=== PATIENT | female | born 1985 | race Caucasian/White ===

== ENCOUNTER → 2018-03-13 15:30 | Outpatient (CLI) | payer OTHER, SELFPAY ==
--- NOTE | 2018-03-13 15:30 | DT_ITS ---
This patient was seen during an EMR downtime March 10, 2018 - March 17, 2018. This patient may have a combination of paper and electronic documentation or all paper documentation. All documentation is viewable within the e-chart portion of [facility] for each patient visit.
[2018-03-16 09:13] LABS: Chlamydia Trachomatis by PCR Negative (Negative); Neisserai gonorrhoeae by PCR Negative (Negative); Probe Check PASS; Sample Adequacy Control PASS; Specimen Processing Control PASS
[2018-03-25 14:04] LABS: HPV APTIMA, High Risk Negative (Negative)
== END ==
PROVIDERS: Visit Provider Obstetrics & Gynecology
DX: Z12.4 Encounter for screening for malignant neoplasm of cervix (principal); Z11.3 Encounter for screening for infections with a predominantly sexual mode of transmission
CPT/HCPCS: 87491; 87591; 88175; G0145

== ENCOUNTER → 2018-03-28 15:05 | Outpatient (CLI) | payer OTHER, SELFPAY ==
[2018-03-28 17:09] LABS: Absolute Lymphocyte Count 2.13 X10^3/ul (0.83-4.51); Absolute Neutrophil Count 7.4 X10^3/uL (2.0-7.7); Basophil# 0.05 X10^3/uL; Basophil% 0.5 % (0-1); Color, Urine Yellow (Yellow); Eosinophil# 0.24 X10^3/uL; Eosinophils% 2.2 % (0-5); Glucose, Dipstick Normal (Normal); Hematocrit 37.3 % (37-47); Hemoglobin 13.3 g/dl (12.0-15.0); Ketone-Dipstick Negative (Negative); Leukocyte Esterase-Dipstick 25 /ul (Negative); Lymphocyte # 2.13 X10^3/ul (4.0); Lymphocyte % 19.4 % (19-41); Mean Corp Hgb Conc 35.7 g/gl (32-36); Mean Corpuscular Hgb 32.9 pg (27.0-32.0); Mean Corpuscular Volume 92.3 fL (81-99); Mean Platelet Vol. 10.2 fl (6.2-12.0); Monocyte# 1.06 X10^3/uL; Monocyte% 9.7 % (0-10); Neutrophil # 7.44 X10^3/uL (2.7-7.7); Neutrophil % 67.8 % (47-70); Nitrite-Dipstick Negative (Negative); Occult Blood-Urine Negative /ul (Negative); Platelet Count 310 K/mm3 (150-450); Protein-Dipstick Negative (Negative); RBC Distribution Width CV 12.1 % (11.6-14.6); Red Blood Count 4.04 M/mm3 (4.2-5.4); Specific Gravity, Urine 1.015 (1.002-1.030); Urine Bilirubin Dipstick Negative (Negative); Urine Clarity Clear (Clear); Urine Urobilinogen 1 mg/dl (Normal)
[2018-03-28 17:12] LABS: POSITIVE COUNT NO; POSITIVE DIFFERENTIAL NO; POSITIVE MORPHOLOGY NO
[2018-03-28 17:17] LABS: COTININE Drug Screen Positive (<200 ng/mL)
[2018-03-28 17:34] LABS: Thyroid Stim Hormone (TSH) 0.34 uIU/mL (0.358-3.74)
[2018-03-28 17:42] LABS: Amphetamine Urine VISTA NEGATIVE (<1000 ng/mL); Barbiturate Urine VISTA NEGATIVE (< 200 ng/mL); Benzodiazepine Urine VISTA NEGATIVE (< 200 ng/mL); Cocaine Urine VISTA NEGATIVE (< 300 ng/mL); Ecstacy Urine VISTA NEGATIVE (< 500 ng/mL); Methadone Urine VISTA NEGATIVE (< 300 ng/mL); PCP Urine VISTA NEGATIVE (< 25 ng/mL); THC Urine VISTA POSITIVE (< 50 ng/mL); Vista UDS pH Range 7
[2018-03-28 18:14] LABS: HIV - WCH Non-Reactive (Nonreactive)
[2018-04-01 11:54] LABS: HEPATITIS B SURFACE AG Negative (Negative); Hep C Antibodies <0.1 s/co ratio (0.0-0.9)
[2018-04-04 05:19] LABS: Prenatal RPR NONREACTIVE (NONREACTIVE)
== END ==
PROVIDERS: Visit Provider Obstetrics & Gynecology
DX: Z34.81 Encounter for supervision of other normal pregnancy, first trimester (principal)
CPT/HCPCS: 36415; 80307; 81002; 84443; 85025; 86703; 86762; 86803; 87340

== ENCOUNTER → 2018-08-18 06:40 | Outpatient (CLI) | payer MEDICAID, SELFPAY ==
[2018-08-18 08:55] LABS: Glucose GTT-Gestation. Fasting 77 mg/dL (<105)
[2018-08-18 08:58] LABS: Glucose GTT-Gestational 1 Hr 85 mg/dL (<190)
[2018-08-18 10:20] LABS: Glucose GTT-Gestational 2 Hr 90 mg/dL (<165)
[2018-08-18 11:37] LABS: Glucose GTT-Gestational 3 Hr 62 L (<145)
== END ==
PROVIDERS: Referring Provider Obstetrics & Gynecology; Visit Provider Obstetrics & Gynecology
DX: O24.912 Unspecified diabetes mellitus in pregnancy, second trimester (principal); Z3A.00 Weeks of gestation of pregnancy not specified
CPT/HCPCS: 36415; 82951; 82952

== ENCOUNTER → 2018-10-01 14:01 | Outpatient (CLI) | payer MEDICAID, SELFPAY | PROVIDERS: Visit Provider Obstetrics & Gynecology | DX: Z36.85 Encounter for antenatal screening for Streptococcus B (principal) | CPT/HCPCS: 87081 ==

== ENCOUNTER 2018-10-02 10:05 | Inpatient (IN) | payer MEDICAID, SELFPAY ==
[2016-04-01 17:58] VITALS: BMI 25.0
[2018-10-02] MEDS: Lactated Ringers 1,000 ML 50 ML IV ×2 (10:20→15:48)
[2018-10-02 10:24] VITALS: BMI 30.5
[2018-10-02] MEDS: Betamethasone/Betamethasone 30 MG/5 ML Vial 12 MG IM (10:37)
[2018-10-02 10:42] LABS: Hematocrit 33.4 % (37-47); Hemoglobin 11.6 g/dl (12.0-15.0); Mean Corp Hgb Conc 34.7 g/gl (32-36); Mean Corpuscular Hgb 32.2 pg (27.0-32.0); Mean Corpuscular Volume 92.8 fL (81-99); Platelet Count 326 K/mm3 (150-450); RBC Distribution Width CV 12.4 % (11.6-14.6); RBC Distribution Width SD 42.4 fl (35.1-43.9); Scan Indicated on CBC? Y/N NO; White Blood Count 14.4 K/mm3 (4.4-11.0)
[2018-10-02 14:07] LABS: Group B Strep DNA By PCR POSITIVE (Negative); Probe Check PASS
[2018-10-02] MEDS: Nalbuphine 10 MG/ML Ampul IV (18:57)
--- NOTE | 2018-10-02 23:37 | PCM.OB.VAG ---
Vaginal Delivery Maternal Presentation: Active Labor Amniotic Membrane Rupture Type: Artificial Rupture of Membrane time: 23:35 on 10/02/18 Amniotic Fluid Description: Clear Final STEPHEN: 10/31/18 Final STEPHEN Source: US <20 weeks Gestational age: 36 Weeks and 0 Days [place] doctor who attended delivery (if requested by OB): Huong Anaya Date of Procedure: 10/03/18 Pre-Operative Diagnosis: IUP; Labor Post-Operative Diagnosis: IUP; Labor Surgery/ Procedure Performed: Spontaneous Vaginal Delivery Type of Anesthesia: None Description of Procedure: Spontaneous vaginal delivery of a viable male with Apgars of 8/9 from an occiput anterior presentation with clear amniotic fluid and normal three-vessel placenta. No episiotomy. First-degree midline laceration repaired with 3-0 Rapide suture. Sponge counts okay. Delivery physician: Ulices Ching MD. Presentation: Vertex Placental Delivery Description: Spontaneous Placenta Disposition: [facility] Cord Vessel Description: 3 Vessels Cord Gases drawn per routine: ABG Cord Entanglement: None Estimated Blood Loss: 400 cc A gender: Male (1 minute): 8 (5 minute): 9 Episiotomy Description: None Laceration: Midline, 1st degree Medications given after delivery: IV Pitocin, IM Methergin Complications: None
--- NOTE | 2018-10-02 23:40 | DCINST_ITS ---
Discharge Diet: No Restrictions Discharge Activity: May Shower, May Take a Tub Bath May resume sexual activity in: 4-6 weeks Additional Activity Instructions:: Nothing in the vagina for 4-6 weeks. You may return to work/school in 6 weeks. Call your doctor if you observe: Fever of 101 or Higher, Inability to urinate, Inability to have a bowel movement, Using more than one pad per hour Additional Instructions: If you experience any of the following, contact your healthcare provider. * Bleeding that soaks a pad every hour for 2 hours * Unrelieved incision or abdominal pain * Swelling, redness, discharge or bleeding from your incision or episiotomy site * Your incision begins to separate * Problems urinating (including inability to urinate or burning while urinating). * Visual changes * Severe headache * Flu-like symptoms * Pain or redness in one of both of your breasts * Pain, warmth, tenderness or swelling in your legs, especially the calf area * Frequent nausea and vomiting * Symptoms of depression or anxiety If you experience any of the following, call 911 or go to the nearest Emergency Room. * Chest pain * Problems breathing * Seizure activity * Partial or complete paralysis of a body part, slurred speech, weakness or drooping of the face, or a sudden inability to walk or hold your balance Allergies/Adverse Reactions: Allergies No Known Allergies Allergy (Verified 04/01/16 18:01) Medications to take at Discharge Vits [Prenatabs FA] 1 tablet PO DAILY 10/02/18 Please Follow Up With: Ulices Ching MD - [phone] When: Call to make an appointment with your doctor in 6 weeks. Primary Care Physician: Care Physician,No Primary [Primary Care Provider] - Test Results: Test results from this visit will be discussed in further detail at your follow- up appointment, if applicable.
--- NOTE | 2018-10-02 23:40 | PCM.DCVAG ---
Discharge Diet: No Restrictions Discharge Activity: May Shower, May Take a Tub Bath May resume sexual activity in: 4-6 weeks Additional Activity Instructions:: Nothing in the vagina for 4-6 weeks. You may return to work/school in 6 weeks. Call your doctor if you observe: Fever of 101 or Higher, Inability to urinate, Inability to have a bowel movement, Using more than one pad per hour Additional Instructions: If you experience any of the following, contact your healthcare provider. Bleeding that soaks a pad every hour for 2 hours Unrelieved incision or abdominal pain Swelling, redness, discharge or bleeding from your incision or episiotomy site Your incision begins to separate Problems urinating (including inability to urinate or burning while urinating). Visual changes Severe headache Flu-like symptoms Pain or redness in one of both of your breasts Pain, warmth, tenderness or swelling in your legs, especially the calf area Frequent nausea and vomiting Symptoms of depression or anxiety If you experience any of the following, call 911 or go to the nearest Emergency Room. Chest pain Problems breathing Seizure activity Partial or complete paralysis of a body part, slurred speech, weakness or drooping of the face, or a sudden inability to walk or hold your balance Allergies/Adverse Reactions: Allergies No Known Allergies Allergy (Verified 04/01/16 18:01) Medications to take at Discharge Vits [Prenatabs FA] 1 tablet PO DAILY 10/02/18 Please Follow Up With: Ulices Ching MD - [phone] When: Call to make an appointment with your doctor in 6 weeks. Primary Care Physician: Care Physician,No Primary [Primary Care Provider] - Test Results: Test results from this visit will be discussed in further detail at your follow-up appointment, if applicable.
[2018-10-03] MEDS: Methylergonovine 0.2 MG/ML Ampul IM (00:35)
[2018-10-03] MEDS: Oxytocin 30 units/NS 500 ml 30 UNITS/500 ML IV.SOLN 334 UNITS IV (00:41)
[2018-10-03] MEDS: Oxytocin 30 units/NS 500 ml 30 UNITS/500 ML IV.SOLN 167 UNITS IV (01:11)
[2018-10-03] MEDS: oxyCODONE 5 MG Tablet PO (01:22)
[2018-10-03] MEDS: 0.9% Saline Lock 10 ML Syringe IV (02:11)
[2018-10-03 04:55] VITALS: BP 104/55; PULSE 80; RESP 17; TEMP 37.2
[2018-10-03 08:30] VITALS: BP 99/46; PULSE 64; RESP 16; TEMP 37; O2SAT 99
[2018-10-03 11:42] VITALS: BP 90/48; PULSE 77; RESP 16; TEMP 37.1; O2SAT 98
[2018-10-03] MEDS: Acetaminophen 500 MG Tablet 1000 MG PO (13:19)
[2018-10-03 15:50] VITALS: BP 100/50; PULSE 74; RESP 16; TEMP 36.7; O2SAT 99
--- NOTE | 2018-10-03 16:58 | PCM.PN.OB ---
Subjective: Day of delivery 36 wk Doing well. Just took tylenol for SYED and this was effective. Plans to bottle feed. Baby doing well. Over 6# weight. - Physical Exam General: Alert, Oriented x3, Cooperative, No apparent distress HEENT: Atraumatic Neck: Supple Abdomen: Soft - Fundus firm NT at umbilicus - 2 cm. Neurological: Cranial nerves II-XII grossly intact Psych/Mental Status: Normal Affect Vital Signs Temp Pulse Resp BP Pulse Ox 98.1 F 74 16 100/50 L 99 10/03/18 15:50 10/03/18 15:50 10/03/18 15:50 10/03/18 15:50 10/03/18 15:50 Oxygen Delivery Method Room Air Weight: 85.9 kg Body Mass Index (BMI) 30.5 Intake and Output for Last 24 Hours 10/01/18 10/02/18 10/03/18 23:59 23:59 23:59 Intake Total 1710 / 1710 Output Total 850 / 850 500 / 500 Balance 860 / 860 -500 / -500 Medical Necessity - Tobacco Use Smoking Status: Heavy Smoker (>10/day) Assessment/Plan Day of Delivery 35 6/7 to 36 wk GBS positive Stable pp. Continue care. Advised may need to stay until 48 Hr after delivery with GBS positive, but will assess this tomorrow.
[2018-10-03 20:45] VITALS: BP 115/47; PULSE 67; RESP 16; TEMP 37.2; O2SAT 97
[2018-10-04 00:32] VITALS: BP 103/47; PULSE 63; RESP 16; TEMP 36.9; O2SAT 98
[2018-10-04 04:10] VITALS: BP 96/51; PULSE 65; RESP 15; TEMP 36.8; O2SAT 99
[2018-10-04 08:15] VITALS: BP 123/84; PULSE 66; RESP 16; TEMP 36.7; O2SAT 97
--- NOTE | 2018-10-04 10:14 | PCM.PN.OB ---
Subjective: PPD#1 delivery 36 wk male. Baby in SCN due to low pulse ox. No plans for dischg today. Advised she delivered 10/03/18 early AM and is PPD#1 today. - Physical Exam General: Alert, Oriented x3, Cooperative, No apparent distress HEENT: Atraumatic Neck: Supple Abdomen: Soft Neurological: Cranial nerves II-XII grossly intact Psych/Mental Status: Normal Affect, Appropriate Vital Signs Temp Pulse Resp BP Pulse Ox 98.2 F 65 15 96/51 L 99 10/04/18 04:10 10/04/18 04:10 10/04/18 04:10 10/04/18 04:10 10/04/18 04:10 Oxygen Delivery Method Room Air Weight: 85.9 kg Body Mass Index (BMI) 30.5 Intake and Output for Last 24 Hours 10/02/18 10/03/18 10/04/18 23:59 23:59 23:59 Intake Total 1710 / 1710 Output Total 850 / 850 500 / 500 Balance 860 / 860 -500 / -500 Medical Necessity - Tobacco Use Smoking Status: Heavy Smoker (>10/day) Assessment/Plan PPD#1 35 6/7 to 36 wk GBS positive Stable pp. Advised may need to stay until 48 Hr after delivery with GBS positive, but will assess this tomorrow. in SCN 2/2 pulse ox issues. Continue care.
[2018-10-04 14:00] VITALS: BP 112/68; PULSE 69; RESP 18; TEMP 37.4; O2SAT 97
--- NOTE | 2018-10-04 19:22 | NURSING ---
1909 Discharged to home with baby. Instructed to return in am for bili. States she may call her ped and go to [facility] and have it done since it is closer. Advised parents that it needs to be drawn tomorrow regardless of location. States they will have it done. 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
[2018-10-04 19:25] VITALS: BP 118/70; PULSE 77; RESP 17; TEMP 36.9; O2SAT 99
[2018-10-05 01:50] VITALS: BP 107/65; PULSE 72; RESP 17; TEMP 36.8; O2SAT 98
--- NOTE | 2018-10-05 08:42 | PN_ITS ---
Progress Note missing. Not in room.
--- NOTE | 2018-10-05 08:42 | PCM.PN.BLA ---
Progress Note missing. Not in room.
--- NOTE | 2018-10-05 09:05 | PCM.PN.OB ---
Subjective: PPD#2 36 wk male baby in SCN with IV and on room air. Bottle feeding. states she has some breast engorgement now, but not planning to nurse. Minimal bleeding. No significant pain. Objective: Sitting in chair in SCN, holding and bottle feeding baby. - Physical Exam General: Alert, Oriented x3, Cooperative, No apparent distress HEENT: Atraumatic Neck: Supple Psych/Mental Status: Normal Affect Vital Signs Temp Pulse Resp BP Pulse Ox 98.3 F 72 17 107/65 98 10/05/18 01:50 10/05/18 01:50 10/05/18 01:50 10/05/18 01:50 10/05/18 01:50 Oxygen Delivery Method Room Air Weight: 85.9 kg Body Mass Index (BMI) 30.5 Intake and Output for Last 24 Hours 10/03/18 10/04/18 10/05/18 23:59 23:59 23:59 Output Total 500 / 500 Balance -500 / -500 Medical Necessity - Tobacco Use Smoking Status: Heavy Smoker (>10/day) Assessment/Plan PPD#2 35 6/7 to 36 wk GBS positive Stable pp. Dischg home. Eligible for hotel if baby is not released. RTO in 6 wk for pp check, prn sooner.
[2018-10-05 09:30] VITALS: BP 117/64; PULSE 72; RESP 16; TEMP 36.9
--- NOTE | 2018-10-07 10:37 | PCM.DC.SUM ---
Discharge Date and Diagnosis Date of Admission: 10/02/18 - 35 6/7 wk labor Date of Discharge: 10/05/18 - Hospital Course and Treatment Operations: - - vaginal delivery Summary of Care Provided: The patient is a 33 year old female at 35 6/7 wk presented to office with advanced cervical dilation, labor, intact bag of marshall. Sent to OB dept for observation, monitoring, and betamethasone. Group B strep sent and returned positive. Slowly progressed in labor to complete and delivered just prior to midnight (10/02 to 10/03) of a onofre viable male 2939 gm Ap 8/9. Patient's recovery uneventful and she was discharged home on PPD#2 (10/05/18) after . - Physical Exam Vital Signs Temp Pulse Resp BP Pulse Ox 98.4 F 72 16 117/64 98 10/05/18 09:30 10/05/18 09:30 10/05/18 09:30 10/05/18 09:30 10/05/18 01:50 Oxygen Delivery Method Room Air Weight: 85.9 kg Body Mass Index (BMI) 30.5 Discharge Diet: No Restrictions Discharge Activity: May Shower, May Take a Tub Bath May resume sexual activity in: 4-6 weeks Additional Activity Instructions:: Nothing in the vagina for 4-6 weeks. You may return to work/school in 6 weeks. Call your doctor if you observe: Fever of 101 or Higher, Inability to urinate, Inability to have a bowel movement, Using more than one pad per hour Home Medications: Medications to take at Discharge Vits [Prenatabs FA] 1 tablet PO DAILY 10/02/18 Primary Care Physician: Care Physician,No Primary [Primary Care Provider] - Please Follow Up With: Ulices Ching MD - [phone] Medical Necessity - Tobacco Use Smoking Status: Heavy Smoker (>10/day) Meaningful Use Info Meaningful Use Diagnoses (Choose all that apply): None applicable
== END 2018-10-05 10:30 | disposition home or self-care (01) | DRG 560 ==
PROVIDERS: Admitting Provider Obstetrics & Gynecology; Referring Provider Obstetrics & Gynecology; Visit Provider Obstetrics & Gynecology
DX: O60.14X0 Preterm labor third trimester with preterm delivery third trimester, not applicable or unspecified (principal); O70.0 First degree perineal laceration during delivery; O99.334 Smoking (tobacco) complicating childbirth; F17.200 Nicotine dependence, unspecified, uncomplicated; O99.824 Streptococcus B carrier state complicating childbirth; O99.324 Drug use complicating childbirth; F12.90 Cannabis use, unspecified, uncomplicated; Z3A.36 36 weeks gestation of pregnancy; Z37.0 Single live birth
CPT/HCPCS: 59025; 59050; 85027; 86850; 86900; 87077; 87081; 87186; 87653; 99218; J7120; A4216; G0378; J0702

== ENCOUNTER → 2018-11-21 13:56 | Outpatient (CLI) | payer MEDICAID, SELFPAY ==
[2018-11-21 15:55] LABS: Progesterone Level 1.02 ng/mL (See Comment)
[2018-11-21 16:01] LABS: Pregnancy, Serum, hCG Quali. NEGATIVE Negative (0-9 Nonpreg)
== END ==
PROVIDERS: Visit Provider Obstetrics & Gynecology
DX: Z30.430 Encounter for insertion of intrauterine contraceptive device (principal)
CPT/HCPCS: 36415; 84144; 84703

== ENCOUNTER → 2020-06-14 16:15 | Outpatient (CLI) | payer MEDICAID, SELFPAY ==
[2020-06-18 13:37] LABS: HPV Reflexed? NOT INDICATED
== END ==
PROVIDERS: Visit Provider Obstetrics & Gynecology
DX: Z12.4 Encounter for screening for malignant neoplasm of cervix (principal)
CPT/HCPCS: 88175; G0145

== ENCOUNTER → 2020-06-17 12:37 | Outpatient (CLI) | payer MEDICAID, SELFPAY ==
--- NOTE | 2020-06-17 12:40 | US_ITS ---
STUDY: SUPERFICIAL ULTRASOUND - RIGHT GROIN REASON FOR EXAM: Female, 34 years old. RT GROIN MASS TECHNIQUE: A superficial ultrasound was performed with real-time and static roger-scale imaging. COMPARISON: None. FINDINGS: There is a 4.7 cm x 4.6 cm x 2.4 cm well-defined homogeneous hypoechoic nodule in the right groin corresponding to the palpable and ML view. This may represent an enlarged lymph node. Biopsy is recommended. US/Ext Non Vasc Limited/Soft Tiss IMPRESSION: The palpable abnormality corresponds to a 4.7 cm x 4.6 cm x 2.4 cm complex hypoechoic nodule. Biopsy is recommended for further evaluation. Electronically Signed: Jesus Ross, at 15:40 EDT , Service support ,
== END ==
PROVIDERS: Referring Provider Obstetrics & Gynecology; Visit Provider Obstetrics & Gynecology
DX: R22.41 Localized swelling, mass and lump, right lower limb (principal)
CPT/HCPCS: 76882

== ENCOUNTER → 2020-07-04 14:24 | Outpatient (CLI) | payer MEDICAID, SELFPAY ==
[2020-07-04 13:25] VITALS: BMI 30.5
--- NOTE | 2020-07-04 13:30 | ASPS_PTH ---
PATIENT: ESSENCE DOOLEY LOC: [facility] U#:[id number] AGE/SX: 40/F ROOM: RE07/04/[address]: Dr. Mark Snyder MD : 1985 BED: DIS: SPEC #: [id number] RECD: 07/04/20 14:11 STATUS: MARIO NIMCO #: [id number] NICHOLAS: 07/04/20 13:[address]: Mark Snyder DEPT: CYTOLOGY RECD BY: Shellie Schulz ENTERED: 07/05/20 09:28 SP TYPE: ASPIRATION OTHR DR: MD Dr. Precious Kim MD Tissues: Subcutaneous tissue, NOS Procedures: Special Stain Group II Cytology Other HEADER OPERATION: Fine needle aspiration right groin mass PRE-OP DIAGNOSIS: Lesion of subcutaneous tissue TISSUE SUBMITTED: Fine needle aspiration right groin mass (6 slides) DIAGNOSIS CYTOLOGY Fine needle aspiration, right groin mass (smears): Negative for malignant cells. See comment. AM:cande 07/06/20 COMMENT The specimen contains amorphous, acellular, proteinaceous material. Clinical correlation is suggested. CYTOLOGY STUDY Slides are reviewed. CYTOLOGY GROSS Received are six smears labeled with the patient's name and designated per the requisition as right groin mass. Submitted for staining. / cande 07/05/20 TC:5 CPT: 80979
== END ==
PROVIDERS: Referring Provider Surgery; Visit Provider Surgery
DX: L98.9 Disorder of the skin and subcutaneous tissue, unspecified (principal)
CPT/HCPCS: 88161; 88313

== ENCOUNTER → 2020-07-11 15:21 | Outpatient (CLI) | payer MEDICAID, SELFPAY ==
--- NOTE | 2020-07-11 13:35 | CYST_PTH ---
PATIENT: ESSENCE DOOLEY LOC: [facility] U#:[id number] AGE/SX: 40/F ROOM: RE07/11/[address]: Dr. Mark Snyder MD : 1985 BED: DIS: SPEC #: [id number] RECD: 07/11/20 15:21 STATUS: MARIO NIMCO #: [id number] NICHOLAS: 07/11/20 13:[address]: Mark Snyder DEPT: SURGICAL PATHOLOGY RECD BY: Shellie Schulz ENTERED: 07/12/20 07:11 SP TYPE: Cyst OTHR DR: Dr. Precious Jean MD Tissues: CYST Procedures: Surgery Specimen Level III HEADER OPERATION: Excision infected sebaceous cyst PRE-OP DIAGNOSIS: Infected sebaceous cyst right groin TISSUE SUBMITTED: Right groin sebaceous cyst MICROSCOPIC DIAGNOSIS Right groin sebaceous cyst, excision: Epidermal inclusion cyst. AM:cande 07/13/20 MICROSCOPIC DESCRIPTION Slides are reviewed. GROSS DESCRIPTION Received in fixative is one container labeled with the patient's name and designated right groin cyst. The specimen consists of a partially opened cystic structure measuring 5 x 3.5 x 2 cm. Safe Deposit Attendant sections are submitted in two cassettes. / AM:cande 07/12/20 TC:5 CPT: 81878
[2020-07-11 13:39] VITALS: BMI 30.5
== END ==
PROVIDERS: Referring Provider Surgery; Visit Provider Surgery
DX: L72.3 Sebaceous cyst (principal)
CPT/HCPCS: 88304